=== PATIENT | male | born 1975 | race African-American/Black ===

== ENCOUNTER 2019-02-02 09:16 | Emergency (ER) | payer MEDICAID ==
[~2019-02-02] VITALS: Ht 162.6 cm; Wt 74.4 kg
[2019-02-02 09:20] VITALS: BP 111/78; Ht 162.6 cm; Wt 74.4 kg
== END 2019-02-02 10:40 | disposition home or self-care (01) ==
LOC: ED 09:16
DX: L03.115 Cellulitis of right lower limb (principal); F31.9 Bipolar disorder, unspecified
CPT/HCPCS: 90715; Q0092